=== PATIENT | female | born 1995 | race Caucasian/White ===

== ENCOUNTER 2022-11-30 18:14 | Outpatient (CLI) | payer OTHER | END 2022-11-30 18:15 | disposition EMS.NT | LOC: EMS 18:14 | DX: Z03.89 Encounter for observation for other suspected diseases and conditions ruled out (principal) ==

== ENCOUNTER 2022-11-30 20:38 | Emergency (ER) | payer OTHER ==
--- NOTE | 2022-11-30 20:46 | ED Physician Documentation ---
PD HPI MHE - Stated complaint Stated Complaint: SI,ETOH - History obtained from History obtained from: Patient, EMS - Additional information Additional information: 27-year-old woman with history of bipolar disorder had been drinking tonight. She called 911, but she will not tell me why she called 911. She arrives accompanied by EMS with an MONICA from [employer] [facility] accompanying her, although she is not accompanied by police. She states she is suicidal but says she is always suicidal and not more suicidal than normal. PD PAST MEDICAL HISTORY - Allergies Allergies/Adverse Reactions: Allergies Allergy/AdvReac Type Severity Reaction Status Date / Time ondansetron [From Zofran] Allergy Unknown Verified 11/30/22 20:48 PD ED PE NORMAL - Vitals Vital signs reviewed: Yes - General General: No acute distress, Other (Tearful, intoxicated) - HEENT HEENT: PERRL - Neck Neck: Supple, no meningeal sign, No bony TTP - Cardiac Cardiac: RRR, No murmur - Respiratory Respiratory: No respiratory distress, Clear bilaterally - Abdomen Abdomen: Soft, Non tender - Derm Derm: Normal color, Warm and dry - Extremities Extremities: No edema, No calf tenderness / cord - Neuro Neuro: Alert and oriented X 3, Normal speech, Other (Tearful, intoxicated) Results - Vitals Vitals: Vital Signs - 24 hr 11/30/22 20:48 Temperature 36.5 C Heart Rate 110 H Respiratory 18 Rate Blood Pressure 116/82 H O2 Saturation 100 Oxygen O2 Source Room air - Labs Labs: Laboratory Tests 11/30/22 11/30/22 11/30/22 20:47 20:54 20:54 WBC 5.9 RBC 4.64 Hgb 14.8 Hct 41.5 MCV 89.4 MCH 31.9 H MCHC 35.7 RDW 11.9 L Plt Count 303 MPV 8.9 Neut # (Auto) 3.0 Lymph # (Auto) 2.2 Weston # (Auto) 0.5 Eos # (Auto) 0.1 Baso # (Auto) 0.0 Absolute Nucleated RBC 0.00 Nucleated RBC % 0.0 Sodium 141 Potassium 3.8 Chloride 111 Carbon Dioxide 22 Anion Gap 8.0 BUN 11 Creatinine 0.7 Estimated GFR (MDRD) 101 Glucose 88 Calcium 9.4 Magnesium 2.2 Total Bilirubin 0.5 AST 23 ALT 25 Alkaline Phosphatase 77 Total Creatine Kinase 58 Total Protein 8.2 Albumin 4.4 Globulin 3.8 Albumin/Globulin Ratio 1.2 Lipase 33 TSH Urine Color YELLOW Urine Clarity CLEAR Urine pH 6.0 Ur Specific [place] <=1.005 Urine Protein NEGATIVE Urine Glucose (UA) NEGATIVE Urine Ketones NEGATIVE Urine Occult Blood NEGATIVE Urine Nitrite NEGATIVE Urine Bilirubin NEGATIVE Urine Urobilinogen 0.2 (NORMAL) Ur Leukocyte Esterase SMALL H Urine RBC 0-5 Urine WBC 4-5 Ur Squamous Epith Cells FEW Squamous Urine Bacteria Few Urine Mucus Few Strands Ur Microscopic Review INDICATED Urine Culture Comments INDICATED Urine HCG, Qual NEGATIVE Salicylates < 6.0 Urine Opiates Screen NEGATIVE Ur Oxycodone Screen NEGATIVE Urine Methadone Screen NEGATIVE Ur Propoxyphene Screen NEGATIVE Acetaminophen < 10 L Ur Barbiturates Screen NEGATIVE Ur Tricyclics Screen NEGATIVE Ur Phencyclidine Scrn NEGATIVE Ur Amphetamine Screen POSITIVE H U Methamphetamines Scrn NEGATIVE U Benzodiazepines Scrn POSITIVE H Urine Cocaine Screen NEGATIVE U Cannabinoids Screen NEGATIVE Ethyl Alcohol 109.8 11/30/22 20:54 WBC RBC Hgb Hct MCV MCH MCHC RDW Plt Count MPV Neut # (Auto) Lymph # (Auto) Weston # (Auto) Eos # (Auto) Baso # (Auto) Absolute Nucleated RBC Nucleated RBC % Sodium Potassium Chloride Carbon Dioxide Anion Gap BUN Creatinine Estimated GFR (MDRD) Glucose Calcium Magnesium Total Bilirubin AST ALT Alkaline Phosphatase Total Creatine Kinase Total Protein Albumin Globulin Albumin/Globulin Ratio Lipase TSH 2.53 Urine Color Urine Clarity Urine pH Ur Specific [place] Urine Protein Urine Glucose (UA) Urine Ketones Urine Occult Blood Urine Nitrite Urine Bilirubin Urine Urobilinogen Ur Leukocyte Esterase Urine RBC Urine WBC Ur Squamous Epith Cells Urine Bacteria Urine Mucus Ur Microscopic Review Urine Culture Comments Urine HCG, Qual Salicylates Urine Opiates Screen Ur Oxycodone Screen Urine Methadone Screen Ur Propoxyphene Screen Acetaminophen Ur Barbiturates Screen Ur Tricyclics Screen Ur Phencyclidine Scrn Ur Amphetamine Screen U Methamphetamines Scrn U Benzodiazepines Scrn Urine Cocaine Screen U Cannabinoids Screen Ethyl Alcohol PD Medical Decision Making - ED course ED course: 27-year-old woman with chronic suicidal ideation and alcohol intoxication presents on an MONICA from [facility]. She was attended to on arrival and EMS report was taken. Work-up here demonstrates normal CBC, CMP, TSH, urinalysis. Urine tox screen is positive for benzodiazepines and amphetamines. Blood alcohol initially was 109. Care to Dr. Gore at 11 PM shift change pending repeat blood alcohol and DCR evaluation. Departure - Departure Clinical Impression: Alcoholic intoxication Qualifiers: Complication of substance-induced condition: uncomplicated Qualified Code(s): F10.920 - Alcohol use, unspecified with intoxication, uncomplicated Depression Qualifiers: Depression Type: major depressive disorder Major depression recurrence: recurrent Active/Remission status: currently active Major depression episode severity: unspecified Qualified Code(s): F33.9 - Major depressive disorder, recurrent, unspecified Condition: Stable
[2022-11-30 21:11] LABS: BASOPHILS % (AUTO) 0.7 %; EOSINOPHILS # (AUTO) 0.1 10^3/uL (0.0-0.7); EOSINOPHILS % (AUTO) 1.7 %; HCT - HEMATOCRIT 41.5 % (37.0-47.0); HGB - HEMOGLOBIN 14.8 g/dL (12.0-16.0); LYMPHOCYTES # (AUTO) 2.2 10^3/uL (1.5-3.5); LYMPHOCYTES % (AUTO) 37.6 %; MEAN CORPUSCULAR HEMOGLOBIN 31.9 pg (27.0-31.0); MEAN CORPUSCULAR HGB CONC 35.7 g/dL (32.0-36.0); MEAN CORPUSCULAR VOLUME 89.4 fL (81.0-99.0); MEAN PLATELET VOLUME 8.9 fL (7.9-10.8); MONOCYTES # (AUTO) 0.5 10^3/uL (0.0-1.0); MONOCYTES % (AUTO) 8.8 %; PLT - PLATELET COUNT 303 10^3/uL (130-450); RED BLOOD COUNT 4.64 10^6/uL (4.20-5.40); RED CELL DISTRIBUTION WIDTH 11.9 % (12.0-15.0); WHITE BLOOD COUNT 5.9 x10^3/uL (4.8-10.8)
[2022-11-30 21:13] LABS: MUDS CUTOFF CONCENTRATIONS CUTOFF CONC BELOW:
[2022-11-30 21:16] LABS: BILIRUBIN,URINE NEGATIVE (NEGATIVE); GLUCOSE, URINE (UA) NEGATIVE (NEGATIVE); KETONES,URINE (UA) NEGATIVE (NEGATIVE); LEUKOCYTE ESTERASE, URINE SMALL (NEGATIVE); NITRITE,URINE NEGATIVE (NEGATIVE); OCCULT BLOOD,URINE NEGATIVE (NEGATIVE); PROTEIN,URINE NEGATIVE (NEGATIVE); UROBILINOGEN,URINE 0.2 (NORMAL) E.U./dL (NORMAL)
[2022-11-30 21:18] LABS: ACETAMINOPHEN < 10 ug/mL (10-30); ALBUMIN 4.4 g/dL (3.2-5.5); ALBUMIN/GLOBULIN RATIO 1.2 (1.0-2.2); ALKALINE PHOSPHATASE 77 IU/L (42-121); ALT ALANINE AMINOTRANSFERASE 25 IU/L (10-60); AST ASPARTATE AMINOTRANSFERASE 23 IU/L (10-42); BILIRUBIN,TOTAL 0.5 mg/dL (0.2-1.0); BUN - BLOOD UREA NITROGEN 11 mg/dL (6-20); CALCIUM 9.4 mg/dL (8.5-10.3); CARBON DIOXIDE - CO2 22 mmol/L (21-32); CHLORIDE 111 mmol/L (101-111); CK- CREATINE KINASE 58 IU/L (22-269); CREATININE 0.7 mg/dL (0.4-1.0); ETOH - ETHANOL 109.8 mg/dL; GFR - MDRD 101 (>89); GLUCOSE 88 mg/dL (70-100); LIPASE 33 U/L (22-51); MAGNESIUM 2.2 mg/dL (1.7-2.8); POTASSIUM 3.8 mmol/L (3.5-5.0); SALICYLATE < 6.0 mg/dL; SODIUM 141 mmol/L (135-145); TOTAL PROTEIN 8.2 g/dL (6.7-8.2)
[2022-11-30 21:19] LABS: CLARITY,URINE CLEAR (CLEAR); HCG UR QUAL NEGATIVE
[2022-11-30 21:27] LABS: BACTERIA,URINE Few /HPF (None Seen); COCAINE SCREEN URINE NEGATIVE (NEGATIVE); METHAMPHETAMINES SCREEN, URINE NEGATIVE (NEGATIVE); MUCUS,URINE Few Strands; OPIATE SCREEN, URINE NEGATIVE (NEGATIVE); RBC,URINE 0-5 /HPF (0-5); SQUAMOUS EPITHELIAL CELL,UR FEW Squamous (<= Few); THC CANNABINOID SCREEN, URINE NEGATIVE (NEGATIVE)
[2022-11-30 21:28] LABS: AMPHETAMINE SCREEN,URINE POSITIVE (NEGATIVE); BARBITURATE SCREEN,UR NEGATIVE (NEGATIVE); BENZODIAZEPINES SCREEN, URINE POSITIVE (NEGATIVE); METHADONE SCREEN, URINE NEGATIVE (NEGATIVE); OXYCODONE SCREEN, URINE NEGATIVE (NEGATIVE); PROPOXYPHENE SCREEN, URINE NEGATIVE (NEGATIVE); TRICYCLIC ANTIDEPRESSANT,URINE NEGATIVE (NEGATIVE)
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
[2022-12-01] MEDS ORDERED: cloNIDine 0.1 MG TABLET PO STA (02:05)
[2022-12-01] MEDS ORDERED: GABAPENTIN 100 MG CAPSULE PO STA (02:06)
[2022-12-01] MEDS ORDERED: PROPRANOLOL 10 MG TABLET PO STA (02:06)
[2022-12-01] MEDS ORDERED: LORazepam 1 MG TABLET PO STA (02:10)
[2022-12-01 02:47] VITALS: BP 125/73
== END 2022-12-01 02:45 | disposition home or self-care (01) ==
LOC: ED 20:38
DX: F10.920 Alcohol use, unspecified with intoxication, uncomplicated (principal); F33.9 Major depressive disorder, recurrent, unspecified; Z20.822 Contact with and (suspected) exposure to COVID-19
CPT/HCPCS: 36415; 80053; 80306; 80307; 80320; 80329; 81001; 81025; 82550; 83690; 83735; 84443; 85025; 87635; 93005; 99283; 99284; A9270; J8499; 81003; 87086

== ENCOUNTER 2023-03-03 05:19 | Outpatient (CLI) | payer SELFPAY | END 2023-03-03 05:20 | disposition EMS.NT | LOC: EMS 05:19 | DX: Z04.6 Encounter for general psychiatric examination, requested by authority (principal); R46.89 Other symptoms and signs involving appearance and behavior ==